=== PATIENT | female | born 1950 | race Caucasian/White ===

== ENCOUNTER 2021-11-29 13:10 | Emergency (ER) | payer MEDICARE, OTHER ==
[~2021-11-29] VITALS: Ht 162.6 cm; Wt 75.0 kg
[2021-11-29] MEDS ORDERED: ASPIRIN 81M81 MG/TA2 PO (14:29)
[2021-11-29] MEDS ORDERED: METFORMIN HCL500 M2 PO (14:29)
[2021-11-29] MEDS ORDERED: TENORMIN50 M1 PO (14:29)
[2021-11-29] MEDS ORDERED: LANTUS SOLOS100 U/ML SQ (14:29)
[2021-11-29] MEDS ORDERED: MULTI-VITAMIN1 EACH PO (14:30)
[2021-11-29] MEDS ORDERED: LEXAPRO20 M1 PO (14:30)
[2021-11-29] MEDS ORDERED: LIPITOR 10M10 MG/TAB PO (14:32)
[2021-11-29] MEDS ORDERED: VITAMIN D310 MC1 PO (14:32)
[2021-11-29 15:42] VITALS: BP 132/68
== END 2021-11-29 15:45 | disposition home or self-care (01) ==
LOC: ED 13:10
DX: S00.01XA Abrasion of scalp, initial encounter (principal); K08.89 Other specified disorders of teeth and supporting structures; V58.4XXA Person boarding or alighting a pick-up truck or van injured in noncollision transport accident, initial encounter; Y92.410 Unspecified street and highway as the place of occurrence of the external cause
CPT/HCPCS: 90715